=== PATIENT | male | born 1950 | race Caucasian/White ===

== ENCOUNTER 2017-07-01 01:56 | Observation (INO) | payer OTHER ==
[2017-06-30 14:18] LABS: INR 0.97
--- NOTE | 2017-06-30 16:37 | RADIOLOGY IMAGING REPORT ---
[place] [facility] [place] Colt Escobar : 1950 MR: [id number] V: [id number] EXAM DATE: ORDERING PHYSICIAN: LUIS MCCARTY TECHNOLOGIST: Location: [facility] - [place] Patient: Colt Escobar : 1950 Visit/Account:[id number] Date of Sevice: 06/30/2017 LEGS BILAT STANDING HIPS-ANKLE HISTORY: PREOP ORDER Additional history: Preoperative for total knee replacement COMPARISON: None. FINDINGS: There is no appreciable leg length discrepancy. Right knee demonstrates moderately advanced joint space narrowing medial compartment and osteophytosi s in the lateral compartment. There is very lateral subluxation of the tibial plateau in relation to the femur. There is mild downsloping of the medial tibial plateau. Left knee there is mild though sloping of the medial tibial plateau but joint spaces well-maintained and there is no evidence of arthropathy. IMPRESSION: No appreciable leg length discrepancy Right knee-moderate osteoarthropathy. Report Dictated By: Marlo Montalvo MD at 06/30/2017 4:15 PM Report E-Signed By: Marlo Montalvo MD at 06/30/2017 4:32 PM WSN:[id number]
[~2017-07-01] VITALS: Ht 177.8 cm; Wt 96.6 kg
[2017-07-01] VITALS (18 sets, daily range): BP systolic 105–186; BP diastolic 66–113
[~2017-07-01 01:56] MED LIST: ACET-1966 PO; CELE-1 PO; CITA-128 PO; CYCL15CA18 PO; DIA5 PO; GAB300 PO; GLUC100026 PO; GLUC1TAB25 PO; MELO-205 PO; MULT1CAP59 PO; PER PO; PRO25 PO; SIMV-42 PO; TAMS0.4C76 PO
[2017-07-01] MEDS ORDERED: fentaNYL CITR 100 MCG/2 ML AMP ONE (08:23)
[2017-07-01] MEDS ORDERED: LIDOCAINE MPF 1% 5 ML VIAL ONE ×2 (08:24→08:53)
[2017-07-01] MEDS ORDERED: PROPOFOL EMUL(*) 10MG/ML 20 ML 20 ML ONE (08:24)
[2017-07-01] MEDS ORDERED: DEXAMETHASONE SOD PHOS 10MG/ML ONE (08:24)
[2017-07-01] MEDS ORDERED: ONDANSETRON 4 MG/2 ML VIAL ONE ×2 (08:24→12:52)
[2017-07-01] MEDS ORDERED: BETAMETHASONE/ACETATE 6 MG/1ML ONE ×2 (08:53→08:57)
[2017-07-01] MEDS ORDERED: FAMOTIDINE 20 MG TAB PO ONE (08:55)
[2017-07-01] MEDS ORDERED: VANCOMYCIN(*) 1 GM VIAL 1 GM, VANCOMYCIN (*) 0.5 GM VIAL 0.5 GM in NS(*) 0.9% 250 ML BA... IVPB ONE (08:55)
[2017-07-01] MEDS ORDERED: TRANEXAMIC AC 1000 MG/10ML SDV 1,000 MG in DEXTROSE 5% 50 ML BAG 50 ML IV ONE (08:55)
[2017-07-01] MEDS ORDERED: cloNIDine EPIDUR INJ 100MCG/ML 40 MCG, ROPIVACAINE 0.5% 20 ML VIAL 25 ML, EPINEPHrine H... INJ ONE (08:55)
[2017-07-01] MEDS ORDERED: MIDAZOLAM 2 MG/2 ML VIAL IVP ONE (08:55)
[2017-07-01] MEDS ORDERED: ceFAZolin(*) 1 GM VIAL 1 GM in NS(*) 0.9% 100 ML ADDVANT BAG 100 ML IVPB ONE (08:55)
[2017-07-01] MEDS ORDERED: NORMOSOL R SOLN(*) 1000 ML BAG 1,000 ML IV PRN (08:55)
[2017-07-01] MEDS ORDERED: LIDOCAINE/SOD BICARB 8.4% SYR ID ONE (08:55)
[2017-07-01] MEDS ORDERED: LIDOCAINE 1%MDV(*)200 MG/20 ML 1 ML ONE (09:30)
[2017-07-01] MEDS ORDERED: ACETAMINOPHEN(*)1000 MG/100 ML 100 ML IVPB ONE (09:40)
[2017-07-01] MEDS ORDERED: ePHEDrine 25 MG/5 ML DISP.SYR IVP ONE ×2 (10:35→10:44)
[2017-07-01] MEDS ORDERED: MORPHINE SULFATE 30 MG PCA IV PRN (12:30)
[2017-07-01] MEDS ORDERED: ONDANSETRON 4 MG/2 ML VIAL IVP PRN (12:30)
[2017-07-01] MEDS ORDERED: FLUSH 10 ML SYR IVP PRN (12:30)
[2017-07-01] MEDS ORDERED: diphenhydrAMINE 25 MG CAP PO PRN (12:30)
[2017-07-01] MEDS ORDERED: KCL/D5LR 20 MEQ/1000 ML PREMIX 1,000 ML IV PRN (12:30)
[2017-07-01] MEDS ORDERED: MAGNESIUM CITRATE 300 ML BTL PO PRN (12:30)
[2017-07-01] MEDS ORDERED: PROMETHAZINE 25 MG/ML 1 ML AMP IVP PRN (12:30)
[2017-07-01] MEDS ORDERED: ACETAMINOPHEN 500 MG TAB PO PRN (12:30)
[2017-07-01] MEDS ORDERED: NALOXONE HCL 0.4 MG/ML VIAL IVP PRN (12:30)
--- NOTE | 2017-07-01 14:31 | RADIOLOGY IMAGING REPORT ---
FACILITY: [facility] - [place] PATIENT NAME: Colt Escobar : 1950 MR: [id number] V: [id number] EXAM DATE: ORDERING PHYSICIAN: LUIS MCCARTY TECHNOLOGIST: Location: [facility] Patient: Colt Escobar : 1950 Visit/Account:[id number] Date of Sevice: 07/01/2017 ADDENDUM #1 Addendum: Although the study is listed as a right knee exam, both images are labeled as left knee. Report Dictated By: Mohsen Hills at 07/07/2017 8:33 AM Report E-Signed By: Mohsen Hills at 07/07/2017 8:34 AM ORIGINAL REPORT Study: KNEE LIMITED RIGHT Indication: Status post total knee replacement Comparison study: None Findings: AP and lateral views of the left knee demonstrates that the patient is status post left tot al knee replacement. There are postoperative changes present. There is no evidence of acute bony abno rmality. There is no evidence of lytic or blastic bony lesion. IMPRESSION: Status post left total knee replacement. Report Dictated By: Mohsen Hills at 07/01/2017 2:25 PM Report E-Signed By: Mohsen Hills at 07/01/2017 2:27 PM WSN:[id number]
[2017-07-01] MEDS ORDERED: HEPARIN FLSH (PORT) 500 UN/5ML IVP ONE (15:25)
--- NOTE | 2017-07-01 16:01 | Hospitalist Progress Note ---
Subjective Progress Notes Subjective No cp/sob. EBL 20cc. 200cc of crystalloid, TXA and Dexamethasone given intra- op. Lowest SBP was 80 intra-op. Physical Exam Vital Signs Date Time Temp Pulse Resp B/P (MAP) Pulse Ox O2 Delivery O2 Flow Rate FiO2 07/01/17 13:30 96 Nasal Cannula 2.0 07/01/17 13:15 67 16 07/01/17 13:15 97.7 132/82 (99) Intake and Output 07/02/17 07:00 Intake Total 1986 ml Output Total 770 ml Balance 1216 ml Intake Oral 10 ml IV Total 1976 ml Output Urine Total 750 ml Estimated Blood Loss 20 ml # Voids 1 General Appearance: Alert, Awake, No Acute Distress Cardiovascular: Regular Rate and Rhythm Respiratory: Clear to Auscultation Extremities: No Edema Result Diagram: 07/01/17 1225 Assessment and Plan Problems: (1) Status post knee replacement Status: Acute Assessment & Plan: No CV/pulmonary issues. He denies any history of DVT/PE. He will be on ASA 325mg a day for 30 days after surgery for blood clot prevention. (2) Primary generalized (osteo)arthritis Status: Chronic Assessment & Plan: He takes Mobic chronically. Will defer to Dr. Patten about when to restart the medication. Exam Sepsis Risk: No Definite Risk Problem Qualifiers (1) Status post knee replacement: Laterality: right Qualified Codes: Z96.651 - Presence of right artificial knee joint GURWINDER THOMAS MD Jul 01, 2017 16:01
--- NOTE | 2017-07-01 16:45 | OPERATIVE REPORT 1 ---
EVENT DATE: July 01, 2017 SURGEON: John Patten MD ANESTHESIOLOGIST: Krishan Robles MD ANESTHESIA: General plus spinal. INTEGRATED MARKETING INTERN: KAYCEE Cisse PREOPERATIVE DIAGNOSIS Bilateral knee arthritis, right much worse than left. POSTOPERATIVE DIAGNOSIS Bilateral knee arthritis, right much worse than left. PROCEDURES PERFORMED 1. Steroid injection, left knee. 2. Total joint arthroplasty, right knee. ESTIMATED BLOOD LOSS 50 INTRAVENOUS FLUIDS Crystalloid 1500, no colloid. TOURNIQUET TIME 80 at 300. SPECIMENS No specimens. COMPLICATIONS No complications. IMPLANTS USED doouy [place] 8 PS femur cut at 5 degrees with 9 RP tibia, 7 mm insert, and no patella. SUMMARY OF PROCEDURE The patient was seen in the preoperative holding area. He had had persistent pain for some years now even though he is a very active individual, hiking hundreds of miles. He would have been a good candidate for a unicompartmental medial arthroplasty were it not for the fact he had no ACL, and he had persistent instability in the right knee. For that reason, he was scheduled for a rotating platform total knee arthroplasty. He was brought back to the operating room, given a spinal, and then a general. His right lower extremity was prepped and draped in an atypical fashion after having first injected 80 mg of Depo-Medrol via a lateral approach in the left knee using just an alcohol prep. I say his draping was atypical because he is quite allergic to ALL ADHESIVES, so we had to minimize that use. We also did not use anything with IODINE, and when we were complete, we did not use STERI-STRIPS or any type of a DERMABOND product. We did end up using one ADHESIVE STRIP that circumferentially wrapped the knee so we could ensure that the junction between the thigh and the tourniquet would remain sterile, but we abstained from IOBAN. The limb was exsanguinated. The tourniquet was inflated. A utilitarian anterior incision was made, deepened through skin and subcutaneous tissue. He had a little bit of bursal fluid in the prepatellar bursa, and the bursa was rongeured. A medial parapatellar arthrotomy followed. The joint fluid was clear. There actually was not much joint fluid there. His kneecap was in outstanding condition, as was the lateral compartment. The medial compartment was fully [id number] with osteophytes, but again, because the absence of an ACL, he was not a candidate for unicompartmental arthroplasty. After irrigating the wound and removing osteophytes, we obtained intramedullary guidance on the femur and then made our initial 5-degree cut distally. This was followed by sizing and selecting an 8, and then we made our four step cut. We used a sizer check, and it fit well, but he has had some posterior osteophytes, and he was still a little bit tight, so I elected not to try to do the posterior condyles just yet. We then did intramedullary guidance for the tibia and made our cut 2 mm below the deficient medial side which took off approximately 9 mm laterally after having first removed the existing cartilage and referencing off the bone itself. This cut was made starting with the standard cutter and finishing with the Silverman, taking care to protect the collateral ligaments. The menisci had already been removed earlier. Having done this, we then used a suitcase handle photocomposing keyboard operator to raise up on the femur and remove the posterior condylar osteophytes and also strip a bit of the posterior capsule to gain better extension. We had previously already done a subperiosteal stripping on the medial side with a Bovie, followed by a half- inch curved osteotome to ensure that we corrected the varus thrust of the knee. At this point, it appeared fairly balanced. We sized a couple different tibial components and elected to use a 9. We selected the RP system and prepared for this with the reamer. We then assembled the trial components and selected several different inserts, ultimately feeling that a 7 was best. These were then removed. We did inject some additional posterior capsular medication for postoperative pain control and then proceeded to open implants and mix cement. He did have two posterior cysts which were curetted, cauterized , and then bone grafted. We also drilled the eburnated surfaces so they would have better cement interdigitation. I looked at his kneecap one more time, and I really have to say that it looked completely normal. When we had done the test insertion, it was very congruent with the trochlear groove, and therefore, I felt he would probably do best without a patellar resurfacing. Cement was mixed, injected, and then we proceeded to do the full insertion in one step using first the tibia, then the insert, and then the femur. The trial insert was used at this time. Cement was removed where it was in excess, and we let the knee sit in full extension, locked and loaded until polymerization was complete, and then we checked his stability again. He was quite tight. It looked like it was a good fit with the 7, so we did remove the trial and placed the final 7. The wound was irrigated one more time before injecting some additional medication and then closing the retinaculum with #1 Vicryl, followed by 3-0 Vicryl for the subcutaneous tissue, and then 4-0 Monocryl for a subcuticular closure, but again, no STERI-STRIPS were used, and knots were buried. He was given a dry, sterile dressing without ADHESIVE contacting his skin. He was then awakened and transferred to the recovery area in stable condition. JOE
[2017-07-02 02:30] VITALS: BP 114/71
[2017-07-02 06:45] LABS: PLATELET COUNT, AUTOMATED 199 K/uL (150-450)
[2017-07-02] MEDS ORDERED: ASPI-764 PO (07:31)
--- NOTE | 2017-07-02 07:34 | Hospitalist Progress Note ---
Subjective Progress Notes Subjective No cp/sob. No concerns from patient or staff. Physical Exam Vital Signs Date Time Temp Pulse Resp B/P (MAP) Pulse Ox O2 Delivery O2 Flow Rate FiO2 07/02/17 02:30 98.3 74 114/71 (85) 93 Nasal Cannula 1.0 07/01/17 13:15 16 General Appearance: Alert, Awake, No Acute Distress Respiratory: Clear to Auscultation Result Diagram: 07/02/17 0600 Assessment and Plan Problems: (1) Status post knee replacement Status: Acute Assessment & Plan: No CV/pulmonary issues. He denies any history of DVT/PE. He will be on ASA 325mg a day for 30 days after surgery for blood clot prevention. (2) Hypoxia Status: Acute Assessment & Plan: The lungs are clear. There is low clinical suspicion for PE or pneumonia. It is secondary to narcotics, recent surgery and Claire's high elevation. If the patient goes home on O2, then the patient is to follow up the PCP's office to check a room air saturation in a couple of days to check need. (3) Primary generalized (osteo)arthritis Status: Chronic Assessment & Plan: He takes Mobic chronically. Will defer to Dr. Patten about when to restart the medication. Exam Sepsis Risk: No Definite Risk Problem Qualifiers (1) Status post knee replacement: Laterality: right Qualified Codes: Z96.651 - Presence of right artificial knee joint GURWINDER THOMAS MD Jul 02, 2017 07:34
[2017-07-02 07:46] VITALS: BP 128/74
[2017-07-02] MEDS ORDERED: ASPIRIN 325 MG ENTERIC COATED PO SCH (09:00)
[2017-07-02] MEDS ORDERED: PER PO (10:47)
[2017-07-02] MEDS ORDERED: OXYC-823 PO (10:48)
[2017-07-02 11:00] VITALS: BP 123/72
[2017-07-02 12:31] VITALS: Ht 177.8 cm; Wt 96.6 kg
== END 2017-07-02 12:53 | disposition home or self-care (01) ==
LOC: OR 01:56 → MED 13:15
PROVIDERS: ADMIT Orthopaedic Surgery Hand Surgery; ATTEND Orthopaedic Surgery Hand Surgery
DX: M17.0 Bilateral primary osteoarthritis of knee (principal); I10 Essential (primary) hypertension
CPT/HCPCS: 27447; 36415; 73560; 77073; 85014; 85018; 85025; 85610; 86850; 86900; 86901; 97110; 97116; 97161; 97530; C1713; C1776; G0378; J0131; J0171; J0702; J0735; J1100; J1885; J2001; J2250; J2405; J2704; J2795; J3010; J3370; J3480; J7050; J7060; Q0163

== ENCOUNTER 2018-07-31 02:17 | Inpatient (IN) | payer MEDICARE, OTHER ==
[2017-07-02 12:31] VITALS: Ht 175.3 cm; Wt 91.4 kg
[~2018-07-31] VITALS: Ht 175.3 cm; Wt 91.4 kg
[2018-07-31] VITALS (18 sets, daily range): BP systolic 118–169; BP diastolic 63–104
[~2018-07-31 02:17] MED LIST changes: +ASPI-764 PO; +OXYC-823 PO
[2018-07-31] MEDS ORDERED: BACITRACIN 50000 UNIT/VIAL 50,000 UNIT in NS 0.9% IRRIG(*) 1000ML PLCT 1,000 ML IR PRN (11:20)
[2018-07-31] MEDS ORDERED: ceFAZolin(*) 2GM/D5W 50ML 50 ML IVPB ONE (11:20)
[2018-07-31] MEDS ORDERED: MIDAZOLAM 2 MG/2 ML VIAL IVP PRN (11:50)
[2018-07-31] MEDS ORDERED: PREGABALIN 150 MG CAPSULE PO ONE (11:50)
[2018-07-31] MEDS ORDERED: LIDOCAINE/SOD BICARB 8.4% SYR ID ONE (11:50)
[2018-07-31] MEDS ORDERED: ACETAMINOPHEN 500 MG TAB PO ONE (11:50)
[2018-07-31] MEDS ORDERED: NORMOSOL R SOLN(*) 1000 ML BAG 1,000 ML IV PRN (11:50)
[2018-07-31] MEDS ORDERED: FAMOTIDINE 20 MG TAB PO ONE (11:50)
[2018-07-31] MEDS ORDERED: fentaNYL CITR 100 MCG/2 ML AMP ONE ×3 (12:26→17:57)
[2018-07-31] MEDS ORDERED: KETAMINE HCL 500 MG/10 ML VIAL ONE (12:27)
[2018-07-31] MEDS ORDERED: ROCURONIUM BROM 10 MG/ML 10 ML ONE (12:29)
[2018-07-31] MEDS ORDERED: LIDOCAINE MPF 1% 5 ML VIAL ONE (12:29)
[2018-07-31] MEDS ORDERED: ONDANSETRON 4 MG/2 ML VIAL ONE (12:29)
[2018-07-31] MEDS ORDERED: DEXAMETHASONE SOD PHOS 10MG/ML ONE (12:29)
[2018-07-31] MEDS ORDERED: PROPOFOL EMUL(*) 10MG/ML 20 ML 20 ML ONE (12:29)
[2018-07-31] MEDS ORDERED: REMIFENTANIL HCL 1 MG VIAL ONE ×2 (12:49→15:49)
[2018-07-31] MEDS ORDERED: PHENYLEPHRINE 10 MG/1 ML VIAL ONE (12:49)
[2018-07-31] MEDS ORDERED: SUGAMMADEX SOD 500 MG/5 ML SDV ONE (13:00)
[2018-07-31] MEDS ORDERED: ePHEDrine 25 MG/5 ML DISP.SYR IVP ONE (14:37)
[2018-07-31] MEDS ORDERED: ROPIVACAINE 0.2% 20 ML VIAL ONE (16:47)
--- NOTE | 2018-07-31 16:54 | RADIOLOGY IMAGING REPORT ---
FACILITY: [facility] - [place] PATIENT NAME: Colt Escobar : 1950 MR: [id number] V: [id number] EXAM DATE: ORDERING PHYSICIAN: ANTIONE WALLACE TECHNOLOGIST: [place] [facility] [place] Colt Esc[place] : 1950 Visit/Account:[id number] Date of Sevice: 07/31/2018 Exam: C-ARM FLUORO 1 HR Indication: L4-5 TRANSFORAMINAL FUSION, RAD Comparison: Lumbar spine MRI 07/08/2018 Findings: Intraoperative fluoroscopy is provided for L4-5 posterior fusion. Fluoroscopy time three minutes one second DOSE: DAP was 20.4-6 Gy*cm2. IMPRESSION: Procedural fluoroscopy Report Dictated By: Paulino Potter at 07/31/2018 4:47 PM Report E-Signed By: Paulino Potter at 07/31/2018 4:49 PM WSN:[id number]
[2018-07-31] MEDS ORDERED: HYDROmorphone HCL 2 MG/ML SDV ONE (17:45)
[2018-07-31] MEDS ORDERED: MAGNESIUM HYDROXIDE* 30ML UDCP PO PRN (17:55)
[2018-07-31] MEDS ORDERED: oxyCODONE HCL 5 MG CAP PO PRN (17:55)
[2018-07-31] MEDS ORDERED: BISACODYL 10 MG SUPP PR PRN (17:55)
[2018-07-31] MEDS ORDERED: LR(*) 1000 ML BAG 1,000 ML IV PRN (17:55)
[2018-07-31] MEDS ORDERED: diphenhydrAMINE 25 MG CAP PO PRN (17:55)
[2018-07-31] MEDS ORDERED: HYDROmorphone HCL 2 MG/ML SDV IVP PRN (17:55)
[2018-07-31] MEDS ORDERED: ONDANSETRON 4 MG/2 ML VIAL IVP PRN (17:55)
[2018-07-31] MEDS ORDERED: ACETAMINOPHEN 500 MG TAB PO PRN (17:55)
[2018-07-31] MEDS ORDERED: ACETAMINOPHEN(*)1000 MG/100 ML 100 ML IVPB PRN (17:55)
[2018-07-31] MEDS ORDERED: BENZOCAINE/MENTHOL 1 EACH LOZG PO PRN (17:55)
[2018-07-31] MEDS ORDERED: FLUSH 10 ML SYR IVP PRN (17:55)
[2018-07-31] MEDS ORDERED: MELO-205 PO (19:26)
--- NOTE | 2018-07-31 19:48 | Hospitalist Progress Note ---
Subjective Progress Notes Subjective Patient seen post-op. Reviewed PMHx and medications. At present he only c/o pain in surgical site. No CP/SOB/nausea. Physical Exam Vital Signs Date Time Temp Pulse Resp B/P (MAP) Pulse Ox O2 Delivery O2 Flow Rate FiO2 07/31/18 19:00 98.0 86 16 148/76 (100) 93 Nasal Cannula 2.0 General Appearance: Alert, Awake Cardiovascular: Regular Rate and Rhythm Respiratory: Clear to Auscultation Assessment and Plan Problems: (1) Primary generalized (osteo)arthritis Status: Chronic Assessment & Plan: He has been managed with meloxicam, which has been on hold for surgery. Will defer to Dr. Valencia when he is to resume the meloxicam. IGNACIO JASSO MD July 31, 2018 19:48
[2018-07-31] MEDS: APAP/HYDROCODONE 325/5 TAB PO PRN (20:55)
[2018-07-31] MEDS: DOCUSATE SODIUM 100 MG CAP PO SCH (20:55)
[2018-07-31] MEDS: ceFAZolin(*) 2GM/D5W 50ML 50 ML IVPB SCH (22:16)
[2018-08-01] VITALS (7 sets, daily range): BP systolic 113–143; BP diastolic 67–92
[2018-08-01] MEDS: DIAZEPAM 5 MG TAB PO PRN ×2 (00:20→07:52)
[2018-08-01] MEDS: APAP/HYDROCODONE 325/5 TAB PO PRN ×2 (02:04→09:35)
--- NOTE | 2018-08-01 03:41 | OPERATIVE REPORT 1 ---
EVENT DATE: July 31, 2018 SURGEON: Chencho Valencia MD ANESTHESIOLOGIST: Ace Coleman DO ANESTHESIA: General endotracheal anesthesia. WARD ATTENDANT: Saeed Newton PA-C PREOPERATIVE DIAGNOSIS L4 and L5 radiculopathy with bilateral L4-L5 foraminal stenosis. POSTOPERATIVE DIAGNOSIS L4 and L5 radiculopathy with bilateral L4-L5 foraminal stenosis. PROCEDURE PERFORMED L4-L5 minimally invasive transforaminal lumbar interbody fusion. INTRAVENOUS FLUIDS 2300 mL. ESTIMATED BLOOD LOSS 30 mL. IMPLANTS 6.5 mm x 45 mm Reline pedicle screws from [employer] x2; 6.5 mm x 50 mm Reline pedicle screws from [employer] x2; 5 mm x 45 mm connecting rods from [employer] x2; locking caps from [employer] x4, and a parallel 12 mm x 26 mm long interbody titanium implant from [employer]. SPECIMENS None. DRAINS None. COMPLICATIONS None. DISPOSITION Postanesthesia care unit. INDICATIONS FOR PROCEDURE Mr. Bee is a 67-year-old gentleman who presented with complaint of radiating right hip and leg pain. The pain radiated down the posterior buttock and then along the lateral and anterior thigh, right greater than left. He had decreased walking tolerance secondary to the pain in the back and buttocks. His physical examination was normal, with normal range of motion, full strength and sensation. He was sent for L4 epidural steroid injections, which gave him excellent relief of his symptoms for a temporary period of time only. Secondary to this, I offered him an L4-L5 minimally invasive transforaminal lumbar interbody fusion. Prior to surgery, I explained in detail to the patient the possible risks of surgery. The risks include bleeding, infection, damage to surrounding structures, damage to nerve roots, spinal fluid leak, meningitis, persistent and/or worsening pain, need for further surgery, , blindness, sexual dysfunction, autonomic nervous system dysfunction, and other unforeseen medical and surgical complications. An understanding that in general, spinal surgery is more predictive at improving extremity discomfort than axial spine pain was stressed. DESCRIPTION OF PROCEDURE On the day of surgery, the patient was met in the preoperative hold area and all questions were answered. The operative site was identified and marked by myself. The patient was brought in good condition to the operating room, and after succumbing to anesthesia was positioned in the prone position on a Prince table. All bony protuberances and soft tissues were well padded in the standard fashion. Care was taken to maintain appropriate perfusion pressures during anesthesia. Preoperative antibiotics were administered according to the appropriate timing schedule. At the conclusion of the procedure, sponge and needle counts were correct x2. A C-arm was brought in and used to allyssa the skin surface landmarks for placement of percutaneous pedicle screws. We marked a line 15 mm lateral to the lateral borders of the pedicles of L4 and L5, and also lines running through the midpoints of the pedicles on Alonzo projections again at L4 and L5. The patient was then prepped and draped in the standard sterile orthopedic fashion, and a final time-out was undertaken to ensure correct patient, correct levels, and correct surgery. Mohsen-style incisions were made bilaterally and hemostasis obtained. Dissection was carried out down to the fascia, which was divided at approximately the interval between the longissimus and multifidus muscles. Blunt finger dissection was carried down through that interval onto the facet joints of L3-L4 and L4-L5. Fluoroscopy was brought into the field, and minimally invasive techniques were used to place pedicle screws bilaterally at L4 and L5. This was accomplished by first docking a Jamshidi needle at the 3 o'clock position for the right side pedicles and the 9 o'clock position for the left side pedicles. The Jamshidi needles were then advanced against resistance using a mallet through the pedicles themselves until they were clearly through the isthmus of the pedicle. Guidewires were then placed through the Jamshidi, and the Jamshidi needles were withdrawn. On lateral projection, we ensured that the wires were through the isthmus of the pedicle, and we had some difficulty on the left side at L5 secondary to severely hard bone that actually prevented us from tapping it first, and then bent the screw when we tried to put a screw in. Ultimately, we were able to gradually use successively large taps on that pedicle in order to place that screw. Once all of the pedicles had been tapped, then we placed 45 mm screws bilaterally at L4 and 50 mm screws bilaterally at L5. On the left side, the screws had minimally invasive towers affixed, while on the right side we affixed 70 mm retractor blades for the [facility] TLIF retractor. The retractor was attached with retractor blades and distracted, and we were able to get some distraction across the disc space and also almost completely reduce the spondylolisthesis at that level. A medial blade was placed and retracted medially. This exposed the facet joint, and I was able to use an osteotome to first remove the inferior articular process of L4 and then the superior articular process of L5. I took care to use fluoroscopy to ensure that I did not osteotomize the pedicle above or below the interspace. Once the facet was removed, a 3 mm Kerrison punch was used to further skeletonize the superior aspect of the L5 pedicle. This afforded me access to the transforaminal space. Hemostasis was obtained and annulotomy knife was used to incise the annulus of the L4-L5 disc space. A combination of hanna, curettes, and pituitary rongeurs was then used to perform a discectomy of the L4-L5 disc space. Once this was accomplished and we had good bleeding bone across both the superior aspect of L5 and the inferior aspect of L4, I placed a 12 mm trial within the disc space and shot radiographs that showed that to be the correct height. I chose a 26 mm length and 12 mm high parallel graft. The interbody space was then packed with combination of demineralized bone matrix with cancellous chips as well as whatever local bone we had been able to harvest from the facetectomy. I then inserted the interbody device under fluoroscopy until it had just crossed midline and was appropriately placed in the anterior half of the disc space. AP and lateral radiographs confirmed appropriate placement of the interbody device. Retractor blades were removed and minimally invasive towers attached to the screws on the right. We used the caliper to measure distance between screws and then ultimately selected 40 mm rods for both sides. These were placed in the standard minimally invasive fashion into the towers and then pressed down into the tulips. Locking caps were placed, and on the left side we used a reduction tower to fully reduce the spondylolisthesis. Once we had placed both connecting rods and all four locking caps were in place, we took a final set of x-rays before doing final tightening of the set screws with the torque-limiting device. The minimally invasive towers were then removed, and the wounds were irrigated with copious sterile saline solution. They were then closed in layers using interrupted sutures for the deep fascia, inverted interrupted sutures for the subcutaneous tissue, and then a running subcuticular skin stitch. Sponge and needle counts were correct x2. POSTOPERATIVE CARE PLAN The patient will remain in the hospital until he meets discharge criteria. He will be discharged home with instructions to follow up in two weeks for wound check and examination. JOE
[2018-08-01] MEDS: ceFAZolin(*) 2GM/D5W 50ML 50 ML IVPB SCH (05:31)
[2018-08-01] MEDS: DOCUSATE SODIUM 100 MG CAP PO SCH (08:09)
[2018-08-01] MEDS ORDERED: DOCU240C84 PO (08:24)
[2018-08-01] MEDS ORDERED: DIA5 PO (08:26)
[2018-08-01] MEDS ORDERED: LOR5/325 PO (08:27)
--- NOTE | 2018-08-01 08:50 | NUR ---
Physical Therapy Impression PT eval complete. Pt met all PT goals and is safe to d/c home from a mobility stand point when medically appropriate. Verbal cues for bed mobility with good log roll demonstrated, [place] for transfers. PT instruction for ambulation with RW, SPC and no AD. Pt with improved dynamic balance with use of RW and overall improved safety. Slight path deviation noted with use of no AD and CGA provided when ambulating with SPC. Rec use of RW at d/c, pt is agreeable. PT instruction for stair negotiation with use of railing and step to gait pattern, pt reports increased pain with stairs but with good tolerance. No further PT visits planned. Physical Therapy Goals 1: Pt to complete bed mobility with log roll and verbal cues. 2: Pt to complete transfers with Ju[place] and appropriate AD 3: Pt to ambulate 150' with SBA and appropriate AD 4: Pt to asc/desc 3 stairs with railing and CGA. Patient's Goals
--- NOTE | 2018-08-01 10:18 | Hospitalist Progress Note ---
Subjective Progress Notes Subjective He was admitted s/p lumbar surgery. He has no complaints this morning. He would like to go home today. Patient Complains of: Cardiovascular: No: Chest Pain Respiratory: No: Shortness of Breath Physical Exam Vital Signs Date Time Temp Pulse Resp B/P (MAP) Pulse Ox O2 Delivery O2 Flow Rate FiO2 08/01/18 08:02 97.6 77 16 125/92 (103) 94 Room Air 08/01/18 01:37 1.0 Intake and Output 08/01/18 07:00 Intake Total 2890 ml Output Total 1275 ml Balance 1615 ml Intake Oral 240 ml IV Total 2650 ml Output Urine Total 1275 ml # Voids 2 General Appearance: Alert, Awake, No Acute Distress, Afebrile Neuro: No Gross deficits Cardiovascular: Regular Rate and Rhythm Respiratory: No Respiratory Distress, Clear to Auscultation GI: Soft and Non-Tender Psych: Alert & Oriented X3, Appropriate Mood & Affect Assessment and Plan Problems: (1) Primary generalized (osteo)arthritis Status: Chronic Assessment & Plan: He has been managed with meloxicam, which has been on hold for surgery. Will defer to Dr. Valencia when he is to resume the meloxicam. Exam Sepsis Risk: No Definite Risk SH[employer]AN [employer] SOFTWARE MANAGER August 01, 2018 10:18
== END 2018-08-01 10:50 | disposition home or self-care (01) | DRG 460 ==
LOC: OR 02:17 → MED 19:00
PROVIDERS: ADMIT Orthopaedic Surgery; ATTEND Orthopaedic Surgery
PROC: 01NB0ZZ Release Lumbar Nerve, Open Approach (ICD-10-PCS; 2018-07-31)
PROC: 0SG00AJ Fusion of Lumbar Vertebral Joint with Interbody Fusion Device, Posterior Approach, Anterior Column, Open Approach (ICD-10-PCS; principal; 2018-07-31 13:53)
DX: M48.061 Spinal stenosis, lumbar region without neurogenic claudication (principal); M54.16 Radiculopathy, lumbar region; F17.220 Nicotine dependence, chewing tobacco, uncomplicated; E78.5 Hyperlipidemia, unspecified
CPT/HCPCS: 36415; 76000; 86850; 86900; 86901; 95940; 97161; C1713; J0131; J0690; J1100; J1170; J2001; J2370; J2405; J2704; J2795; J3010; J7120